=== PATIENT | male | born 1985 | race Caucasian/White ===

== ENCOUNTER 2019-04-11 12:19 | Outpatient (CLI) | payer BC, SELFPAY ==
[2019-04-11 13:00] LABS: HCT 48.3 % (40.0-50.0); HGB 16.6 g/dL (13.5-17.5); Mean Corp. HGB Concentration 34.4 g/dL (32.0-36.0); Mean Corpuscular Hemoglobin 31.4 pg (27.0-33.0); Mean Corpuscular Volume 91.3 fL (80-95); Mean Platelet Volume 9.8 fL (8.0-11.0); Platelet Count 296 x1000/uL (130-400); RBC 5.29 m/cumm (4.50-6.00); RBC Distribution Width 13.9 % (11.8-14.1); White Blood Cell Count 13.86 k/cumm (4.4-10.8)
[2019-04-11 13:49] LABS: ESR 17 mm/hr (0-15)
[2019-04-11 15:04] LABS: TSH (W/Ref FT4) 1.08 uIU/mL (0.36-3.74)
[2019-04-12 11:29] LABS: Rheumatoid Factor 10 IU/mL (<12.5)
[2019-04-12 12:49] LABS: Lyme Ab w Rflx to Lyme Confirm Negative
[2019-04-12 13:43] LABS: ANA Interpretation Negative (NEGAT)
== END 2019-04-11 12:39 ==
PROVIDERS: PCP Nurse Practitioner; Visit Provider Nurse Practitioner
DX: I10 Essential (primary) hypertension (principal); R53.83 Other fatigue; M25.50 Pain in unspecified joint
CPT/HCPCS: 36415; 85027; 85652; 84443; 86038; 86431; 86618

== ENCOUNTER 2019-04-23 10:20 | Outpatient (CLI) | payer BC, SELFPAY ==
--- NOTE | 2019-04-23 15:00 | DI.RAD_ITS ---
EXAM: XR CHEST 2V PA AND LATERAL INDICATION: SOB, fatigue, cough, R53.83, R06.02, R05. COMPARISON: No exams were available for comparison TECHNIQUE: 2D digital imaging was performed. FINDINGS: The lungs are well expanded and free of infiltrate. There is no pleural effusion. The cardiovascular structures are intact. IMPRESSION: Normal chest
== END 2019-04-23 10:40 ==
PROVIDERS: PCP Nurse Practitioner; Visit Provider Nurse Practitioner
DX: R05 Cough (principal); R06.02 Shortness of breath; R53.83 Other fatigue
CPT/HCPCS: 71046

== ENCOUNTER 2021-08-30 14:37 | Outpatient (CLI) | payer BC, SELFPAY ==
--- NOTE | 2021-08-30 14:30 | RT.EKG_ITS ---
APPROVED REPORT Exam: Resting ECG Reason for Exam: Medication monitoring Patient Location: O HR:81 bpm ECG Measurements Heart Rate 81 AXIS GA 143 P 59 QRSd 93 QRS -90 QT 379 T 52 QTc 439 Conclusion Sinus rhythm...normal P axis, V-rate 60- 99 Left anterior fascicular block...axis(240,-40), init forces inf
== END 2021-08-30 14:38 | disposition home or self-care (01) ==
LOC: DI.KIM 14:39
PROVIDERS: PCP Nurse Practitioner; Visit Provider Nurse Practitioner
DX: Z79.899 Other long term (current) drug therapy
CPT/HCPCS: 93010

== ENCOUNTER 2022-09-05 14:43 | Outpatient (CLI) | payer BC, SELFPAY ==
--- NOTE | 2022-09-05 14:30 | RT.EKG_ITS ---
APPROVED REPORT Exam: Resting ECG Reason for Exam: pt on adderall Patient Location: O HR:74 bpm ECG Measurements Heart Rate 74 AXIS AZ 138 P 51 QRSd 98 QRS -77 QT 367 T 50 QTc 408 Conclusion Sinus rhythm...normal P axis, V-rate 50- 99 Left anterior fascicular block...axis(240,-40), init forces inf RSR' in V1 or V2
== END 2022-09-05 14:44 | disposition home or self-care (01) ==
LOC: DI.KIM 14:45
PROVIDERS: PCP Nurse Practitioner; Visit Provider Nurse Practitioner
DX: Z51.81 Encounter for therapeutic drug level monitoring (principal); I44.4 Left anterior fascicular block; R94.31 Abnormal electrocardiogram [ECG] [EKG]
CPT/HCPCS: 93010

== ENCOUNTER 2022-12-29 08:13 | Emergency (ER) | payer BC, SELFPAY ==
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
[2022-12-29 08:16] VITALS: BP 127/67; PULSE 80; RESP 16; TEMP 37.1; O2SAT 99
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
[2022-12-29] MEDS: Ketorolac 15 MG/ML VIAL IVP (08:59)
[2022-12-29 09:02] LABS: Abs Immature Grans 0.06 10^3/uL (0.0-0.06); Absolute Basophil Count 0.07 10^3/uL (0.0-0.2); Absolute Eosinophil Count 0.15 10^3/uL (0.0-0.7); Absolute Lymphocyte Count 2.22 10^3/uL (1.2-3.4); Absolute Monocyte Count 0.95 10^3/uL (0.1-0.8); Absolute Neutrophil Count 7.83 10^3/uL (1.2-6.7); Basophils % 0.6; Eosinophils % 1.3; HCT 46.6 % (40.0-50.0); HGB 16.1 g/dL (13.5-17.5); Immature Grans % 0.5; Lymphocytes % 19.7; MCH 31.7 pg (27.0-33.0); MCHC 34.5 % (32.0-36.0); MCV 92 fL (80-95); MPV 8.9 fL (8.0-11.0); Monocytes % 8.4; Neutrophils % 69.5; Platelet Count 256 10^3/uL (130-400); RBC 5.08 10^6/uL (4.36-5.78); RDW-SD 44.3 fL; WBC 11.26 10^3/uL (4.4-10.8)
[2022-12-29] MEDS: Omnipaque 350 MG/ML 500 ML BTL-Imaging package IJ (09:11)
[2022-12-29] MEDS: Normal Saline - Diluent 50 ML VIAL IJ (09:11)
[2022-12-29 09:31] LABS: ALT 38 U/L (16-63); AST 25 U/L (15-37); Albumin 3.8 g/dL (3.4-5.0); Alkaline Phosphatase 111 U/L (46-116); Anion Gap 5.2 mmol/L (3-11); BUN 8 mg/dL (7-18); Bilirubin, Total 0.3 mg/dL (0.2-1.0); CO2 28.8 mmol/L (21.0-32.0); CREATININE 0.9 mg/dL (0.70-1.30); Calcium 8.8 mg/dL (8.5-10.1); Chloride 99 mmol/L (98-107); Estimated GFR 111.42 (mL/min/1.73m2); Glucose 103 mg/dL (74-106); Potassium 3.9 mmol/L (3.5-5.1); Sodium 133 mmol/L (136-145); Total Protein 7.7 g/dL (6.4-8.2)
[2022-12-29 09:52] VITALS: BP 127/74; PULSE 89; RESP 18; TEMP 36.4; O2SAT 96
== END 2022-12-29 10:05 | disposition home or self-care (01) ==
PROVIDERS: Emergency Provider Emergency Medicine; PCP Nurse Practitioner
DX: S30.1XXA Contusion of abdominal wall, initial encounter (principal); S20.212A Contusion of left front wall of thorax, initial encounter; V28.09XA Other motorcycle driver injured in noncollision transport accident in nontraffic accident, initial encounter
CPT/HCPCS: 36415; 74177; 80053; 96374; 99285; 71260; 85025; 99284; J1885